=== PATIENT | male | born 1990 | race Asian ===

== ENCOUNTER 2017-01-16 17:54 | Emergency (ER) | payer OTHER ==
[~2017-01-16 17:54] MED LIST: PRED20TA PO; PROAIR HFA8.5 GM INH
[2017-01-16 17:57] VITALS: BP 126/87
--- NOTE | 2017-01-16 18:38 | PHYS DOC ---
Past Medical History Past Medical History: No Pertinent History Past Surgical History: No Surgical History Alcohol Use: Occasionally Drug Use: None Adult General Chief Complaint Chief Complaint: COUGH HPI HPI Patient is a 26 year old male with no significant medical history who presents to the ED today with a productive cough, runny nose, and sore throat that began yesterday. Patient is in the ED with another family member with the same complaints. Review of Systems Review of Systems Constitutional: Denies fever or chills [] Eyes: Denies change in visual acuity, redness, or eye pain [] HENT: nasal congestion and sore throat [] Respiratory: cough Cardiovascular: No additional information not addressed in HPI [] GI: Denies abdominal pain, nausea, vomiting, bloody stools or diarrhea [] : Denies dysuria or hematuria [] Musculoskeletal: Denies back pain or joint pain [] Integument: Denies rash or skin lesions [] Neurologic: Denies headache, focal weakness or sensory changes [] Endocrine: Denies polyuria or polydipsia [] Allergies Allergies Allergies Coded Allergies Type Severity Reaction Last Updated Verified No Known Drug Allergies 06/10/16 No Physical Exam Physical Exam Constitutional: Well developed, well nourished, no acute distress, non-toxic appearance. [] HENT: Normocephalic, atraumatic, bilateral external ears normal, oropharynx moist, no oral exudates, nose normal. [] Eyes: PERRLA, EOMI, conjunctiva normal, no discharge. [] Neck: Normal range of motion, no tenderness, supple, no stridor. [] Cardiovascular:Heart rate regular rhythm, no murmur [] Lungs & Thorax: Bilateral breath sounds clear to auscultation [] Abdomen: Bowel sounds normal, soft, no tenderness, no masses, no pulsatile masses. [] Skin: Warm, dry, no erythema, no rash. [] Back: No tenderness, no CVA tenderness. [] Extremities: No tenderness, no cyanosis, no clubbing, ROM intact, no edema. [] Neurologic: Alert and oriented X 3, normal motor function, normal sensory function, no focal deficits noted. [] Psychologic: Affect normal, judgement normal, mood normal. [] Current Patient Data Vital Signs Vital Signs Date Time Temp Pulse Resp B/P Pulse Ox O2 Delivery O2 Flow Rate FiO2 01/16/17 17:57 98.4 86 16 99 Room Air 98.4 Lab Values Laboratory Tests Test 01/16/17 18:19 Influenza Type A Antigen Negative (NEGATIVE) Influenza Type B Antigen Negative (NEGATIVE) EKG EKG [] Radiology/Procedures Radiology/Procedures [] Course & Med Decision Making Course & Med Decision Making Pertinent Labs and Imaging studies reviewed. (See chart for details) Patient is in the ED with a viral illness symptoms including cough, sore throat. Negative rapid strep, negative influenza A or B. Patient's symptoms are viral. Discharged with Lynnette Law. Instructed to take Tylenol/ Motrin for pain or fever. F/u with PCP in one wk. Dragon Disclaimer Dragon Disclaimer This electronic medical record was generated, in whole or in part, using a voice recognition dictation system. Departure Departure Impression: Primary Impression: Viral pharyngitis Additional Impressions: Upper respiratory infection Cough Disposition: HOME, SELF-CARE Condition: STABLE Referrals: NO PCP (PCP) Follow-up with your own doctor in one week Patient Instructions: Cough, Child, Upper Respiratory Infection, Adult, Viral Pharyngitis Additional Instructions: You were seen with symptoms consistent with a viral illness. Take Tylenol every 4 hours and Motrin every 6 hours as needed for pain. Use saltwater gargles. Follow-up with your own doctor in one week. Scripts Benzonatate (Shaniasalon Bret)100 Mg Capsule1 Cap PO TID #30 CAP Prov:BAL VILLAREAL APRN 01/16/17 Problem Qualifiers Additional Impressions: Upper respiratory infection URI type: unspecified URI Qualified Code: J06.9 - Acute upper respiratory infection, unspecified BAL VILLAREAL INTERNAL MEDICINE VETERINARY TECHNICIAN Jan 16, 2017 18:38
[2017-01-16 19:02] LABS: OBC FLU VALID
[2017-01-16] MEDS ORDERED: BENZ100C PO (19:31)
[2017-01-17 10:29] LABS: NEGATIVE OBC STREP NEG; POSITIVE OBC STREP POS
== END 2017-01-16 19:36 | disposition home or self-care (01) ==
LOC: ER 17:54
DX: J02.8 Acute pharyngitis due to other specified organisms (principal); J06.9 Acute upper respiratory infection, unspecified
CPT/HCPCS: 87070; 87804; 87880; 99284